=== PATIENT | female | born 1940 ===

== ENCOUNTER → 2018-03-27 | Emergency (ER) | payer OTHER ==
[~2018-03-27] VITALS: Ht 149.9 cm; Wt 75.3 kg
[~2018-03-27] MED LIST: COZAAR50 MG; NAMENDA10 MG; PLAVIX75 MG; SYNTHROID88 MCG; VERAPAMIL HCL40 MG; ZYBAN150 MG
== END | disposition home or self-care (01) ==
LOC: ER 14:33
DX: S00.03XA Contusion of scalp, initial encounter (principal); W18.31XA Fall on same level due to stepping on an object, initial encounter; Y93.01 Activity, walking, marching and hiking; Y92.018 Other place in single-family (private) house as the place of occurrence of the external cause; Y99.8 Other external cause status

== ENCOUNTER 2020-06-24 05:36 | Emergency (ER) | payer OTHER ==
[~2020-06-24] VITALS: Ht 149.9 cm; Wt 68.0 kg
== END 2020-06-24 12:00 | disposition home or self-care (01) ==
LOC: ER 05:36
DX: S02.2XXA Fracture of nasal bones, initial encounter for closed fracture (principal); S16.1XXA Strain of muscle, fascia and tendon at neck level, initial encounter; S05.11XA Contusion of eyeball and orbital tissues, right eye, initial encounter; W18.09XA Striking against other object with subsequent fall, initial encounter; Y93.01 Activity, walking, marching and hiking; Y92.012 Bathroom of single-family (private) house as the place of occurrence of the external cause; Y99.8 Other external cause status

== ENCOUNTER 2020-09-10 07:41 | Outpatient (CLI) | payer OTHER | END 2020-09-10 07:56 | disposition home or self-care (01) | LOC: NUCLEAR 07:41 | PROVIDERS: ATTEND Internal Medicine Cardiovascular Disease | DX: I11.9 Hypertensive heart disease without heart failure (principal); I20.9 Angina pectoris, unspecified | CPT/HCPCS: 78452; 93017; A9500; J0153 ==

== ENCOUNTER 2023-07-29 11:40 | Emergency (ER) | payer OTHER ==
[~2023-07-29] VITALS: Ht 149.9 cm; Wt 72.6 kg
== END 2023-07-29 14:59 | disposition home or self-care (01) ==
LOC: ER 11:40
PROVIDERS: General Practice
DX: U07.1 COVID-19 (principal); R42 Dizziness and giddiness; G30.8 Other Alzheimer's disease; F02.80 Dementia in other diseases classified elsewhere, unspecified severity, without behavioral disturbance, psychotic disturbance, mood disturbance, and anxiety

== ENCOUNTER 2024-01-19 11:09 | Inpatient (IN) | payer OTHER ==
[~2024-01-19] VITALS: Ht 152.4 cm; Wt 657.7 kg
[2024-01-19] MEDS ORDERED: CHILDREN'S ASPI81 MG (11:19)
[2024-01-19] MEDS ORDERED: RISPERIDONE O0.25 MG (11:19)
[2024-01-19] MEDS ORDERED: ATORVASTATIN CA10 MG PO (11:19)
[2024-01-19] MEDS ORDERED: SERTRALINE20 MG/1 ML (11:19)
--- NOTE | 2024-01-19 11:19 | NUR ---
PTE ALERTA Y ACTIVA LLEGA EN AMBULANCIA EN COMPANIA DE PARAMEDICOS Y FAMILIAR QUIEN REFIERE PTE DESDE DHEERAJ DOLOR EN FLANCO DERECHO Y 3 VOMITOS DHEERAJ. REFIERE NO MALDONADO TENIDO VOMITOS HOY. SE BUNNY SV Y SE UBICA
[2024-01-19] MEDS ORDERED: FAMOtidine 10 MG/ML (4ML VIAL) IV STA (11:49)
[2024-01-19] MEDS ORDERED: 0.9 % SODIUM CHLORIDE 1,000 ML IV STA (11:52)
[2024-01-19] MEDS ORDERED: ONDANSETRON HCL 2 MG/ML VIAL IV ONE (12:00)
--- NOTE | 2024-01-19 12:14 | NUR ---
PACIENTE EVALUADA POR . SE ORIENTA SOBRE TX MEDICO, REFIERE ENTENDER. SE REALIZAN MUESTRAS DE LABORATORIO BAJO MEDIDAS ASEPTICAS. SE ADMINISTRAN MEDICAMENTOS CAITIE ORDEN MEDICA. SE COORDINA CT. PACIENTE MANEJADA POR Y . PENDIENTE RE-EVALUACION MEDICA.
[2024-01-19 12:40] LABS: HEMATOCRIT 41.7 % (36.0-45.00); MEAN CELL VOLUME 89.9 fL (80.00-100.00); MEAN CORPUSCULAR HEMOGLOBIN 30.1 pg (27.00-32.0); MEAN CORPUSCULAR HGB CONC 33.4 g/dl (32.0-36.0); PLATELET COUNT 148 K/uL (150-450); RED BLOOD COUNT 4.64 M/uL (4.00-6.00)
[2024-01-19 12:50] LABS: CALCIUM 8.8 mg/dL (8.5-10.1); CREATININE SERUM 0.64 mg/dL (0.55-1.02); GFR 88.62; POTASSIUM 3.16 mEq/L (3.5-5.1)
[2024-01-19 12:59] LABS: URINE APPEARANCE Clear; URINE BILIRRUBIN Negative (NEGATIVE); URINE BLOOD Large; URINE COLOR Yellow; URINE LEUKOCYTE Negative; URINE NITRATE Negative
[2024-01-19 13:00] LABS: URINE BACTERIA 6.2 uL (0.0-1933); URINE RBC 884.6 uL (0.0-20.8); URINE WBC 12.2 uL (0.0-23.2)
[2024-01-19 13:09] LABS: URINE GLUCOSE 100 MG/DL (NEGATIVE); URINE PROTEIN 300 (NEGATIVE)
[2024-01-19] MEDS ORDERED: PIPERACILLIN/TAZOBACTAM SODIUM 3.375 GM in DEXTROSE 5 % IN WATER 100 ML IV SCH (19:34)
[2024-01-19] MEDS ORDERED: PANTOPRAZOLE SODIUM 40 MG/VIAL VIAL IV SCH (19:35)
[2024-01-19] MEDS ORDERED: 0.9 % SODIUM CHLORIDE 1,000 ML IV SCH (19:45)
[2024-01-19] MEDS ORDERED: ONDANSETRON HCL 4 MG in 0.9 % SODIUM CHLORIDE 50 ML IV PRN (19:45)
[2024-01-19] MEDS ORDERED: ACETAMINOPHEN 500 MG GEL..CAP PO PRN (19:45)
[2024-01-19] MEDS ORDERED: MORPHINE SULFATE 2 MG/ML CARTRIDGE IV PRN (19:45)
[2024-01-19 21:42] LABS: BILIRUBIN TOTAL 1.45 mg/dL (0.3-1.2); BILIRUBIN,CONJUGATED 0.45 mg/dL (0.0-0.2)
[2024-01-19 21:44] LABS: INR 1.41; PARTIAL THROMBOPLASTIN TIME 29.1 SECONDS (22.0-34.0); PROTHROMBIN TIME 14.4 SECONDS (9.0-11.5)
[2024-01-19 22:25] LABS: ABG PH 7.411 (7.35-7.45); ABG PO2 181.6 mmHg (80-100); ABG pCO2 41.3 mmHg (35-45); BASE EXCESS 0.9 mmol/l; BICARBONATE 25.6 mmol/l (23-25); SaO2 99.6 %; Tco2 26.9 mmol/l; allen test SATISFACTORY; o2 32 %; puncture site RADIAL RIGHT
[2024-01-20] MEDS ORDERED: LEVOTHYROXINE SODIUM 100 MCG TABLET PO SCH (06:00)
[2024-01-20] MEDS ORDERED: AMIODARONE HCL 50 MG/ML AMPUL IV SCH (14:15)
[2024-01-20 15:10] LABS: CALCIUM 8.7 mg/dL (8.5-10.1); CHOL HDL RATIO 2.1 (0-5.0); CREATININE SERUM 0.62 mg/dL (0.55-1.02); GFR 91.93; POTASSIUM 3.33 mEq/L (3.5-5.1)
[2024-01-20] MEDS ORDERED: AA 4.25%/CAL/LYTES/DEXT 5% 1,000 ML PERIFERAL SCH (17:00)
[2024-01-21 07:01] LABS: ALBUMIN 2.2 gm/dL (3.4-5.0); BILIRUBIN TOTAL 0.9 mg/dL (0.3-1.2); CALCIUM 7.9 mg/dL (8.5-10.1); CREATININE SERUM 0.49 mg/dL (0.55-1.02); GFR 120.61; GLOBULINA 3.1 G/DL (2.4-3.5); TOTAL PROTEIN 5.3 gm/dL (6.4-8.2)
[2024-01-21 07:24] LABS: POTASSIUM 2.7 mEq/L (3.5-5.1)
[2024-01-21] MEDS ORDERED: POTASSIUM CHLORIDE IN WATER 40 MEQ/100 ML PIGGYBAG IV ONE (09:15)
[2024-01-21] MEDS ORDERED: CHLORHEXIDINE GLUCONATE 120 ML BOTTLE TOP ONE (11:02)
[2024-01-21 18:30] LABS: HEMATOCRIT 38.1 % (36.0-45.00); HEMOGLOBIN 12.8 g/dL (12.0-15.00); MEAN CELL VOLUME 91.4 fL (80.00-100.00); MEAN CORPUSCULAR HEMOGLOBIN 30.8 pg (27.00-32.0); MEAN CORPUSCULAR HGB CONC 33.7 g/dl (32.0-36.0); RED BLOOD COUNT 4.17 M/uL (4.00-6.00); RED CELL DISTRIBUTION WIDTH 14.3 % (11.5-14.5)
[2024-01-21 18:56] LABS: PLATELET COUNT 105 K/uL (150-450)
[2024-01-21] MEDS ORDERED: ENOXAPARIN SODIUM 60 MG/0.6 ML SYRINGE SUBCUTANEO SCH (21:00)
[2024-01-22] MEDS ORDERED: POTASSIUM CHLORIDE IN WATER 40 MEQ/100 ML PIGGYBAG IV ONE (09:30)
[2024-01-23] MEDS ORDERED: AMIODARONE HCL 200 MG TABLET PO SCH (09:00)
[2024-01-24 12:02] LABS: HEMATOCRIT 31.8 % (36.0-45.00); HEMOGLOBIN 10.8 g/dL (12.0-15.00); MEAN CELL VOLUME 89.5 fL (80.00-100.00); MEAN CORPUSCULAR HEMOGLOBIN 30.4 pg (27.00-32.0); PLATELET COUNT 148 K/uL (150-450); RED BLOOD COUNT 3.55 M/uL (4.00-6.00); RED CELL DISTRIBUTION WIDTH 14.7 % (11.5-14.5)
[2024-01-24 12:31] LABS: ALBUMIN 1.6 gm/dL (3.4-5.0); BILIRUBIN TOTAL 1.09 mg/dL (0.3-1.2); CALCIUM 7.9 mg/dL (8.5-10.1); CREATININE SERUM 0.34 mg/dL (0.55-1.02); GFR 183.88; GLOBULINA 3.1 G/DL (2.4-3.5); POTASSIUM 3.32 mEq/L (3.5-5.1); TOTAL PROTEIN 4.7 gm/dL (6.4-8.2)
[2024-01-26] MEDS ORDERED: SILVER SULFADIAZINE 50 GM,ZINC OXIDE 30 GM,NYSTATIN 15 GM TOP PRN (19:00)
[2024-01-27] MEDS ORDERED: IOVERSOL 320 MG/ML - 50 ML VIAL IV ONE ×2 (10:50→12:30)
[2024-01-27] MEDS ORDERED: GLUCAGON 1 MG VIAL ONE (12:13)
[2024-01-27] MEDS ORDERED: GLUCAGON 1 MG VIAL IV ONE (12:45)
[2024-01-27] MEDS ORDERED: ALBUTEROL SULFATE 3 ML/2.5 MG AMPUL.NEB IH ONE (13:53)
[2024-01-27] MEDS ORDERED: KETOROLAC TROMETHAMINE 30 MG VIAL IM STA (15:17)
[2024-01-27] MEDS ORDERED: URSODIOL 300 MG CAPSULE PO SCH (17:00)
[2024-01-27] MEDS ORDERED: PIPERACILLIN/TAZOBACTAM SODIUM 3.375 GM in 0.9 % SODIUM CHLORIDE 100 ML IV SCH (18:00)
[2024-01-28] MEDS ORDERED: KETOROLAC TROMETHAMINE 30 MG VIAL IM PRN (07:45)
[2024-01-28 08:37] LABS: HEMATOCRIT 33.6 % (36.0-45.00); HEMOGLOBIN 11.4 g/dL (12.0-15.00); MEAN CELL VOLUME 90.4 fL (80.00-100.00); MEAN CORPUSCULAR HEMOGLOBIN 30.6 pg (27.00-32.0); MEAN CORPUSCULAR HGB CONC 33.9 g/dl (32.0-36.0); PLATELET COUNT 241 K/uL (150-450); RED BLOOD COUNT 3.72 M/uL (4.00-6.00); RED CELL DISTRIBUTION WIDTH 14.5 % (11.5-14.5)
[2024-01-28 08:40] LABS: ALBUMIN 1.6 gm/dL (3.4-5.0); BILIRUBIN TOTAL 0.87 mg/dL (0.3-1.2); CALCIUM 7.7 mg/dL (8.5-10.1); CREATININE SERUM 0.52 mg/dL (0.55-1.02); GFR 112.62; GLOBULINA 3.4 G/DL (2.4-3.5)
[2024-01-28 09:04] LABS: POTASSIUM 2.8 mEq/L (3.5-5.1)
[2024-01-29] MEDS ORDERED: POTASSIUM CHLORIDE IN WATER 40 MEQ/100 ML PIGGYBAG IV ONE (08:45)
[2024-01-30 07:43] LABS: CALCIUM 7.5 mg/dL (8.5-10.1); CREATININE SERUM 0.33 mg/dL (0.55-1.02); GFR 190.32
[2024-01-30 07:47] LABS: HEMATOCRIT 30.6 % (36.0-45.00); HEMOGLOBIN 10.2 g/dL (12.0-15.00); MEAN CELL VOLUME 88.7 fL (80.00-100.00); MEAN CORPUSCULAR HEMOGLOBIN 29.7 pg (27.00-32.0); MEAN CORPUSCULAR HGB CONC 33.5 g/dl (32.0-36.0); PLATELET COUNT 291 K/uL (150-450); RED BLOOD COUNT 3.45 M/uL (4.00-6.00); RED CELL DISTRIBUTION WIDTH 14.9 % (11.5-14.5)
[2024-01-30] MEDS ORDERED: LOSARTAN POTASSIUM 50 MG TABLET PO SCH (09:00)
[2024-01-30 09:15] LABS: POTASSIUM 2.71 mEq/L (3.5-5.1)
[2024-01-30] MEDS ORDERED: POTASSIUM CHLORIDE IN WATER 40 MEQ/100 ML PIGGYBAG IV ONE (10:45)
[2024-01-30] MEDS ORDERED: KETOROLAC TROMETHAMINE 30 MG VIAL IM PRN (18:30)
[2024-01-30] MEDS ORDERED: AMLODIPINE BESYLATE 5 MG TABLET PO SCH (21:00)
[2024-01-31 06:54] LABS: HEMATOCRIT 29.5 % (36.0-45.00); HEMOGLOBIN 10.1 g/dL (12.0-15.00); MEAN CELL VOLUME 88.6 fL (80.00-100.00); MEAN CORPUSCULAR HEMOGLOBIN 30.4 pg (27.00-32.0); MEAN CORPUSCULAR HGB CONC 34.3 g/dl (32.0-36.0); PLATELET COUNT 306 K/uL (150-450); RED BLOOD COUNT 3.34 M/uL (4.00-6.00); RED CELL DISTRIBUTION WIDTH 14.8 % (11.5-14.5)
[2024-01-31 07:13] LABS: ALBUMIN 1.5 gm/dL (3.4-5.0); BILIRUBIN TOTAL 0.73 mg/dL (0.3-1.2); CALCIUM 7.4 mg/dL (8.5-10.1); GLOBULINA 3.5 G/DL (2.4-3.5)
[2024-01-31 07:41] LABS: GFR 250.6; POTASSIUM 2.88 mEq/L (3.5-5.1)
[2024-01-31 07:42] LABS: CREATININE SERUM 0.26 mg/dL (0.55-1.02)
[2024-01-31] MEDS ORDERED: POTASSIUM CHLORIDE IN WATER 40 MEQ/100 ML PIGGYBAG IV SCH (14:47)
== END 2024-01-31 20:38 | disposition home or self-care (01) | DRG 872 ==
LOC: ER 11:09 → MEDJ 19:50 → ICU 19:50 → ICU-2 19:50 → ICU 21:36 → MEDJ 01-22 10:46
PROVIDERS: General Practice; Internal Medicine Gastroenterology; Student in an Organized Health Care Education/Training Program; ADMIT Internal Medicine; ATTEND Internal Medicine
PROC: BW21ZZZ Computerized Tomography (CT Scan) of Abdomen and Pelvis (ICD-10-PCS; 2024-01-19)
PROC: BF37ZZZ Magnetic Resonance Imaging (MRI) of Pancreas (ICD-10-PCS; 2024-01-19)
PROC: 02HV33Z Insertion of Infusion Device into Superior Vena Cava, Percutaneous Approach (ICD-10-PCS; 2024-01-21)
PROC: B24BZZZ Ultrasonography of Heart with Aorta (ICD-10-PCS; 2024-01-22)
PROC: BW28ZZZ Computerized Tomography (CT Scan) of Head (ICD-10-PCS; 2024-01-26)
PROC: 0FJB8ZZ Inspection of Hepatobiliary Duct, Via Natural or Artificial Opening Endoscopic (ICD-10-PCS; principal; 2024-01-27 07:00)
DX: A41.9 Sepsis, unspecified organism (principal); K80.62 Calculus of gallbladder and bile duct with acute cholecystitis without obstruction; G93.40 Encephalopathy, unspecified; I48.91 Unspecified atrial fibrillation; I10 Essential (primary) hypertension; E78.5 Hyperlipidemia, unspecified; G30.9 Alzheimer's disease, unspecified; F02.80 Dementia in other diseases classified elsewhere, unspecified severity, without behavioral disturbance, psychotic disturbance, mood disturbance, and anxiety; Z20.822 Contact with and (suspected) exposure to COVID-19; E03.9 Hypothyroidism, unspecified